=== PATIENT | female | born 1980 | race Two or more races ===

== ENCOUNTER 2021-07-03 09:32 | Emergency (ER) | payer BC ==
[2021-07-03 10:06] VITALS: BP 131/93; PULSE 94; RESP 16; TEMP 97.9
--- NOTE | 2021-07-03 12:00 | US ---
EXAMINATION TYPE: US venous doppler duplex LE LT DATE OF EXAM: 07/03/2021 11:07 AM COMPARISON: NONE CLINICAL HISTORY: pain. Pain and swelling within left leg. No hx of DVT. SIDE PERFORMED: Left TECHNIQUE: The lower extremity deep venous system is examined utilizing real time linear array sonog ann with graded compression, doppler sonography and color-flow sonography. VESSELS IMAGED: Common Femoral Vein Deep Femoral Vein Greater Saphenous Vein * Femoral Vein Popliteal Vein Small Saphenous Vein * Proximal Calf Veins (* superficial vessels) Left Leg: Positive for DVT Hyperechoic material expanding the lumen with absent to minimal color flow from groin region through the knee level IMPRESSION: Long segment acute DVT.
--- NOTE | 2021-07-03 12:22 | ED ---
Extremity Problem HPI - General Chief complaint: Extremity Problem,Nontraumatic Stated complaint: possible blood clot/leg Time Seen by Provider: 07/03/21 11:06 Source: patient, RN notes reviewed Mode of arrival: wheelchair Limitations: no limitations - History of Present Illness Initial comments: This a 40-year-old female presents emergency Department with chief complaint of left leg pain. Patient states that she woke up with pain and discomfort this morning. She has any chest pain or shortness breath. Patient states that she is on control since he was 20. Patient is concerned about possible DVT. Patient has no history DVT denies any other associated complaints. - Related Data Home Medications Medication Instructions Recorded Confirmed Enpresse-28 1 tab PO DAILY 07/03/21 07/03/21 Allergies Allergy/AdvReac Type Severity Reaction Status Date / Time aspirin Allergy Unknown Verified 07/03/21 11:59 Review of Systems ROS Statement: Those systems with pertinent positive or pertinent negative responses have been documented in the HPI. ROS Other: All systems not noted in ROS Statement are negative. Past Medical History Past Medical History: No Reported History Additional Past Medical History / Comment(s): estrogen therapy History of Any Multi-Drug Resistant Organisms: None Reported Past Surgical History: No Surgical Hx Reported Past Psychological History: No Psychological Hx Reported Smoking Status: Never smoker Past Alcohol Use History: None Reported Past Drug Use History: None Reported General Exam Limitations: no limitations General appearance: alert, in no apparent distress Head exam: Present: atraumatic, normocephalic, normal inspection Eye exam: Present: normal appearance, PERRL, EOMI. Absent: scleral icterus, conjunctival injection, periorbital swelling ENT exam: Present: normal exam, normal oropharynx, mucous membranes moist Neck exam: Present: normal inspection. Absent: tenderness, meningismus, lymphadenopathy Respiratory exam: Present: normal lung sounds bilaterally. Absent: respiratory distress, wheezes, rales, rhonchi, stridor Cardiovascular Exam: Present: regular rate, normal rhythm, normal heart sounds. Absent: systolic murmur, diastolic murmur, rubs, gallop, clicks Extremities exam: Present: other (Left leg is notable swelling, tenderness with palpation, mild erythema, pulses are equal bilaterally lower extremity) Neurological exam: Present: alert Course Vital Signs 07/03/21 10:01 Temperature 97.9 F Pulse Rate 94 Respiratory 16 Rate Blood Pressure 131/93 O2 Sat by Pulse 99 Oximetry Medical Decision Making - Medical Decision Making 40-year-old presented for left leg pain. Patient does have noted pulses the left leg, patient's ultrasound is positive for acute DVT long segment I did discuss case with vascular surgery recommended patient to discharge on Eliquis with follow-up next week in office repeat ultrasound she is return if she is having increasing pain or any other associated symptoms. Disposition Clinical Impression: Left leg DVT Disposition: HOME SELF-CARE Condition: Stable Instructions (If sedation given, give patient instructions): Deep Vein Thrombosis (ED) Additional Instructions: Please return to the Emergency Department if symptoms worsen or any other concerns. Is patient prescribed a controlled substance at d/c from ED?: No Referrals: Nonstaff,Physician [Primary Care Provider] - 1-2 days Arnaud Andrews DO [STAFF PHYSICIAN] - 1-2 days Time of Disposition: 12:36
[2021-07-03] MEDS ORDERED: APIXABAN 5 MG TAB PO STA (12:34)
== END 2021-07-03 13:19 | disposition home or self-care (01) ==
LOC: EC 09:32
DX: I82.402 Acute embolism and thrombosis of unspecified deep veins of left lower extremity (principal); Z88.6 Allergy status to analgesic agent
CPT/HCPCS: 99283

== ENCOUNTER → 2021-07-08 | Outpatient (CLI) | payer BC ==
--- NOTE | 2021-07-08 20:58 | CT ---
EXAMINATION TYPE: CT chest angio for PE DATE OF EXAM: 07/08/2021 COMPARISON: NONE HISTORY: Chest pain. Left groin pain. CT DLP: 252.6 mGycm. Automated Exposure Control for Dose Reduction was Utilized. CONTRAST: CTA scan of the thorax is performed with IV Contrast, patient injected with 100 mL of Isovue 370, pul monary embolism protocol. MIP Images are created on CT scanner and reviewed. FINDINGS: LUNGS: The lungs are grossly clear, there is no concerning parenchymal mass or nodule identified. T here is no pleural effusion or pneumothorax seen. The tracheobronchial tree is patent. MEDIASTINUM: There is suboptimal bolus with most dense contrast in the SVC. Satisfactory enhancement of the aorta without aneurysm or dissection. Poor opacification of pulmonary arteries. No large cent ral saddle pulmonary embolism. Suboptimal evaluation of peripheral vessels. There are no greater than 1 cm hilar or mediastinal lymph nodes. No cardiomegaly or pericardial effusion is seen. OTHER: There is S-shaped scoliosis. Please refer to same-day CTA chest report for complete details in the upper abdomen. IMPRESSION: Suboptimal study without subtle central pulmonary embolism. Cannot exclude peripheral pul monary embolism. No acute pulmonary process. No thoracic aortic aneurysm or dissection.
--- NOTE | 2021-07-08 21:37 | CT ---
EXAMINATION TYPE: CT angio abdomen pelvis DATE OF EXAM: 07/08/2021 HISTORY: Left groin pain. CT DLP: 642.2mGycm Automated Exposure Control for Dose Reduction was Utilized. CONTRAST: CTA scan of the abdomen and pelvis is performed without oral but with IV Contrast, patient injected w ith 100 mL of Isovue 370. Three-D reconstructed images created on an independent workstation and revi ewed. Performed delayed imaging venogram protocol. COMPARISON: Left lower extremity venous ultrasound 5 days earlier.. FINDINGS: VASCULAR: Delayed phase imaging shows poor contrast opacification of arteries. There is hypoechoic ma terial filling the visualized portion of the left superficial femoral vein extending into the left co mmon femoral vein and groin level which is expanded as is the opposite right side showing moderate leon rrounding ill-defined fluid and fat stranding. This extends into the left external iliac vein and sub sequently into the common femoral vein. Asymmetric enlargement of central hypodensity of the Lasix po rtion of the left internal iliac vein is also present. There is no evidence of right-sided thrombus. No evidence of thrombus within the IVC. LUNG BASES: Please refer to same-day CT chest report for complete details on the lung bases.. LIVER/GB: Prominent right hepatic lobe. Visualized liver heterogeneously hypodense consistent with di ffuse fatty infiltration. Contracted gallbladder. PANCREAS: No significant abnormality is seen. SPLEEN: No significant abnormality is seen. ADRENALS: No significant abnormality is seen. KIDNEYS: Satisfactory excretion without concerning renal mass or hydronephrosis seen bilaterally. BOWEL: Suboptimal evaluation of bowel without enteric contrast. No suspicious small or large bowel di latation. UTERUS/ADNEXA: Anteverted uterus. Ovaries are symmetric and thought within normal limits in size. Sma ll amount of free fluid pelvic cul-de-sac is nonspecific finding. LYMPH NODES: No greater than 1cm abdominal or pelvic lymph nodes are appreciated. OSSEOUS STRUCTURES: There is S-shaped scoliosis.. OTHER: No significant additional abnormality is seen. IMPRESSION: Known long segment acute DVT left lower extremity involves external and internal iliac ve ins as well as the common femoral vein up to near the level of the IVC confluence. Surrounding fluid and fat stranding left groin region raises concern for inflammatory change and/or thrombophlebitis. F indings are consistent with May Thurner syndrome.
== END | disposition home or self-care (01) ==
LOC: RADCTMAIN 17:20
PROVIDERS: ATTEND Surgery
DX: I82.402 Acute embolism and thrombosis of unspecified deep veins of left lower extremity (principal)
CPT/HCPCS: 71275; 74174; Q9967

== ENCOUNTER → 2021-07-11 | Day surgery (SDC) | payer BC ==
[~2021-07-11] MED LIST: ALPRAZolam 0.25 MG TAB PO PRN; ASPIRIN 325 MG TAB PO PRN; CLOPIDOGREL 75 MG TAB ONE; HEPARIN SODIUM 1,000 UN/ML (10ML VL) IV ONE; HEPARIN SODIUM 1,000 UN/ML (10ML VL) ONE; HYDROmorphone 1 MG/ML 1 ML SYRINGE IVP ONE; IOPAMIDOL-370 100ML BTL INJ ONE; LIDOCAINE 1% INJ 10MG/ML (20 ML MDV) ONE; LIDOCAINE 1% INJ 10MG/ML (20 ML MDV) SQ ONE; SODIUM CHLORIDE 0.9% 1,000 ML IV ONE; SODIUM CHLORIDE 0.9% 1,000 ML in EMPTY BAG 1 BAG IV ONE
[2021-07-11 10:51] VITALS: RESP 16; TEMP 98.3
[2021-07-11 10:54] LABS: Basophils # (A) 0.1 k/uL (0-0.2); Basophils % (A) 1 %; Eosinophils # (A) 0.3 k/uL (0-0.7); Eosinophils % (A) 3 %; HCT 39.3 % (34.0-46.0); HGB 13.3 gm/dL (11.4-16.0); Lymphocytes # (A) 1.8 k/uL (1.0-4.8); Lymphocytes % (A) 19 %; MCH 30.5 pg (25.0-35.0); MCHC 33.7 g/dL (31.0-37.0); MCV 90.5 fL (80.0-100.0); Mean Platelet Volume 6.7; Monocytes # (A) 0.5 k/uL (0-1.0); Monocytes % (A) 6 %; Neutrophils # (A) 6.4 k/uL (1.3-7.7); Neutrophils % (A) 70 %; Platelet Count 787 k/uL (150-450); RBC 4.35 m/uL (3.80-5.40); RDW 12.1 % (11.5-15.5); WBC 9.1 k/uL (3.8-10.6)
[2021-07-11 11:08] LABS: African American GFR (CKD) >90 (>60 ml/min/1.73 sqM); Anion Gap 11 mmol/L; Blood Urea Nitrogen 10 mg/dL (7-17); Calcium 9.5 mg/dL (8.4-10.2); Carbon Dioxide 25 mmol/L (22-30); Chloride 103 mmol/L (98-107); Glucose 102 mg/dL (74-99); Non-African American GFR(CKD) >90 (>60 ml/min/1.73 sqM); Sodium 139 mmol/L (137-145)
[2021-07-11] MEDS: MIDAZOLAM 2 MG/2 ML VIAL IV ONE ×2 (11:32→11:50)
[2021-07-11] MEDS: fentaNYL (PF) 50 MCG/ML 2 ML AMP IV ONE ×3 (11:39→12:31)
--- NOTE | 2021-07-11 13:49 | IR ---
EXAMINATION TYPE: IR stent intravas non coronary DATE OF EXAM: 07/11/2021 COMPARISON: NONE HISTORY: Fluoroscopy time. Fluoroscopy was provided to the referring clinician.
[2021-07-11 18:00] VITALS: BP 113/73; PULSE 86
--- NOTE | 2021-07-18 13:31 | P.OP ---
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 Ultrasound guided left popliteal vein access 2. IVC, Iliofemoral, popliteal venogram 3. Percutaneous mechanical thrombectomy with Inari Clottriever of the IVC, Left common, external iliac vein, and femoral vein 4. Percutaneous balloon venoplasty of the left common iliac, external iliac vein with 8x40mm balloon, [id number] [place] balloon 5. Percutaneous stenting of the left common iliac and external iliac vein with Medtronic Abre [id number] 6. Intravascular ultrasound of the IVC, left common iliac, external iliac, femoral and popliteal vein Anesthesia: local, other (conscious sedation x 80mins) Surgeon: Arnaud Andrews Brand Inspector #1: Shraddha Rodriguez Estimated Blood Loss (ml): 100 Pathology: none sent Condition: stable Disposition: PACU Indications for Procedure: 40 year old female with recent history of left leg swelling and severe pain with acute dvt involving the left lower extremity femoral, iliac veins. She underwent CT and revealed extension to the IVC. She presents today for thrombectomy and possible stenting. Operative Findings: Severe stenosis left common iliac artery. Description of Procedure: After written and informed consent was obtained from the patient and all risks, benefits and complications were described patient was brought to the catheter lab and laid in a prone position. The area of the left leg was prepped and draped in usual sterile fashion. Procedure was performed under conscious sedation and patient was monitored with continuous pulse ox monitoring and EKG monitoring. Timeouts performed fashion. Utilizing ultrasound the left popliteal vein was visualized and shown to have visible thrombus but demonstrated some flow. Utilizing a multipurpose needle the vein was accessed and utilizing Seldinger technique a 6 [place] sheath was placed. 035 guidewire was then placed And directed up the popliteal vein into the femoral vein and the external iliac vein. Venogram was performed through the 6 [place] sheath dem onstrating large amount of thrombus extending up to the common iliac vein where there was an occlusion noted with reconstitution of the right iliac system via large collaterals. Patient was administered heparin and followed with ACTs. 035 Glidewire advantage was then placed followed by a 13 [place] Inari sheath. Guidewire drainage was then advanced through the blockage into the inferior vena cava followed by a quick cross catheter. Once across the lesion a venogram was obtained of the inferior vena cava demonstrating good intraluminal access. Guidewire Jeromy was then placed into the subclavian vein. Quick cross catheter was then removed and replaced with intravascular ultrasound catheter. Intravascular ultrasound was then performed of the popliteal, femoral, iliac and inferior vena cava. Large amount of thrombus was noted as well as stenotic areas noted at the common iliac vein. At that time it was determined to place the Clotriever And multiple passes were then performed utilizing the mechanical thrombectomy. Large amount of thrombus was removed and there was noted area of severe stenosis at the common iliac vein on the left. After multiple passes were performed venogram was obtained demonstrating once again severe stenosis at the common iliac vein but improved amount of thrombus. Intravascular ultrasound was once again performed demonstrating severe stenosis measuring greater than 90% consistent with May Thurner syndrome. Balloon venoplasty was then performed with a 8 x 20 mm balloon. During balloon venoplasty there was severe stenosis and wasting noted. Once completed this balloon was then upsized to a 16 x 40 mm balloon and balloon venoplasty was once again performed. Good improvement of the lumen was noted and after measurements were obtained via the IVUS catheter and venogram of a 16 x 120 mm Abre stent was placed. Post dilatation was then performed with the 16 x 40 mm balloon. Final venogram was obtained demonstrating brisk flow through the stents with disappearance of the collateral vasculature. Intravascular ultrasound was once again obtained demonstrating good intraluminal placement of the stent with no areas of stenosis with good karrie roximation of the venous wall. All guidewires and catheters were then removed as well as the sheath and pressure was held for hemostasis. The patient tolerated the procedure well and was sent to recovery. She will continue her oral anticoagulation and follow-up in the office in a couple weeks. Plan - Discharge Summary Discharge Rx Participant: No New Discharge Prescriptions: No Action Enpresse-28 1 tab PO HS Acetaminophen-Codeine 300-30mg [Tylenol w/codeine #3] 1 tab PO Q6HR PRN PRN Reason: Pain Apixaban [Eliquis Starter Pack (for VTE)] 5 mg PO BID Clopidogrel [Plavix] 75 mg PO DAILY Discharge Medication List Enpresse-28 1 tab PO HS 07/03/21 [History] Apixaban [Eliquis Starter Pack (for VTE)] 5 mg PO BID 07/10/21 [History] Acetaminophen-Codeine 300-30mg [Tylenol w/codeine #3] 1 tab PO Q6HR PRN 07/11/21 [History] Clopidogrel [Plavix] 75 mg PO DAILY 07/11/21 [History] Follow up Appointment(s)/Referral(s): Arnaud Andrews DO [STAFF PHYSICIAN] - 2 Weeks (Office is closed,please call to make appointment date and time) Patient Instructions/Handouts: Angiography (DC), Peripheral Vascular Stent Placement (DC) Activity/Diet/Wound Care/Special Instructions: No driving x2 days Encourage fluids Pain management- script provided Continue same medications- Plavix to start on 07/12 Follow up in 2 weeks call for appointment date and time No submersion of left leg in pools/hot tubs/bath tubs x3 days Fall risk/safety precautions Discharge Disposition: HOME SELF-CARE
== END | disposition home or self-care (01) ==
LOC: CATHCVL 09:48
PROVIDERS: ATTEND Surgery
DX: I82.432 Acute embolism and thrombosis of left popliteal vein (principal); Z20.822 Contact with and (suspected) exposure to COVID-19; Z79.01 Long term (current) use of anticoagulants; Z88.6 Allergy status to analgesic agent; Z91.018 Allergy to other foods
CPT/HCPCS: 37187; 36012; 75820; 37238; 37239; 37252; 37253; 80048; 85025; 81025; 87635; C1894 ×2; C1725 ×2; C1769 ×4; C1887; C1753; C1757; C1876; J2250; J2001; J3010; J1644; J1170; Q9967